=== PATIENT | female | born 1975 | race Caucasian/White ===

== ENCOUNTER 2018-02-16 16:45 | Emergency (ER) | payer BC, OTHER | END 2018-02-16 19:02 | disposition home or self-care (01) | LOC: ERS 16:45 | DX: S39.012A Strain of muscle, fascia and tendon of lower back, initial encounter (principal); E78.5 Hyperlipidemia, unspecified; F32.9 Major depressive disorder, single episode, unspecified; R73.03 Prediabetes; Z79.899 Other long term (current) drug therapy; Z79.84 Long term (current) use of oral hypoglycemic drugs; V43.52XA Car driver injured in collision with other type car in traffic accident, initial encounter | CPT/HCPCS: 99283 ==

== ENCOUNTER 2018-02-27 15:11 | Outpatient (CLI) | payer BC, OTHER | END 2018-02-27 15:12 | disposition home or self-care (01) | LOC: BICRAD 15:11 | PROVIDERS: ATTEND Chiropractor | DX: M54.12 Radiculopathy, cervical region (principal) | CPT/HCPCS: 72040 ==

== ENCOUNTER 2018-05-03 15:49 | Outpatient (CLI) | payer BC ==
--- NOTE | 2018-05-03 16:50 | MRI ---
MRI CERVICAL SPINE WITHOUT IV CONTRAST 05/03/18 HISTORY: Neck pain. Headaches after accident. COMPARISON: None available. FINDINGS: Limited visualized base of the brain and cervicomedullary junction demonstrate a normal MRI appearanc e. Normal signal intensity is demonstrated in the bone marrow. Cervical spinal cord is normal in sign al intensity and contour. C2-3 level: There is no disc bulge or disc herniation. The central spinal canal and neural foramina a re patent. C3-4 level: There is no disc bulge or disc herniation. The central spinal canal and neural foramina a re patent. C4-5 level: There is no disc bulge or disc herniation. Central spinal canal and neural foramina are p atent. C5-6 level: There is loss of intervertebral disc height. There is a disc osteophyte complex present w hich narrows the ventral subarachnoid space with minimal right sided neural foraminal narrowing. The left neural foramen is patent. C6-7 level: There is a broad based disc osteophyte complex which narrows the ventral subarachnoid spa ce, but the neural foramina are patent. C7-T1 level: There is minimal disc bulge, but the central spinal canal and neural foramina are patent . The prevertebral and paravertebral soft tissues demonstrate normal signal intensity. IMPRESSION: Mild degenerative changes in the cervical spine at the C5-6 and C6-7 levels. However, there is no sig nificant narrowing of the central spinal canal or neural foramina at any level. POS: [facility]
== END 2018-05-03 15:50 | disposition home or self-care (01) ==
LOC: MRI 15:49
PROVIDERS: ATTEND Chiropractor
DX: M54.2 Cervicalgia (principal); R51 Headache; M47.892 Other spondylosis, cervical region
CPT/HCPCS: 72141

== ENCOUNTER 2020-09-14 17:00 | Inpatient (IN) | payer BC ==
[2020-09-14 17:47] LABS: #Basophils 0.1 thou/uL (0.0-0.2); #Lymphocytes 0.5 thou/uL (1.20-3.40); #Monocytes 0.3 thou/uL (0.11-0.59); #Neutrophils 4.4 thou/uL (1.40-6.50); %Basophils 1.2 % (0.0-1.0); %Eosinophils 0.2 % (0.0-10.0); %Lymphocytes 10.1 % (21.0-51.0); %Neutrophils 82.5 % (42.0-75.0); Hemoglobin 13.5 g/dL (12.0-16.0); Mean Corpuscular HGB CONC 31.6 g/dL (32.0-36.0); Mean Corpuscular Hemoglobin 28.2 pg (27.0-31.0); Mean Corpuscular Volume 89.2 fL (78.0-98.0); Mean Platelet Volume 7.8 fL (7.4-10.4); Platelet Count 287 thou/uL (130-400); RBC Distribution Width 13.7 % (11.5-14.5); Red Blood Cell (RBC) Count 4.78 mill/uL (4.20-5.40); White Blood Cell (WBC) Count 5.3 thou/uL (4.8-10.8)
[2020-09-14] MEDS ORDERED: Dexamethasone 10 MG/ML VIAL ONE (17:51)
[2020-09-14 18:21] LABS: ALT (SGPT) 99 U/L (8-55); AST (SGOT) 126 U/L (5-34); Albumin 3.6 g/dL (3.5-5.0); Alkaline Phosphatase 120 U/L (40-110); Anion Gap 16 mmol/L (10-20); BUN (Urea Nitrogen) 15 mg/dL (7.0-18.7); Bilirubin, Total 0.2 mg/dL (0.2-1.2); CRP (Inflammatory) 19.88 mg/dL (= or < 0.5); Calc. Creatinine Clearance 0 mL/min (70-130); Calcium 8.4 mg/dL (7.8-10.44); Carbon Dioxide 24 mmol/L (22-29); Chloride 103 mmol/L (98-107); Globulin 3.3 g/dL (2.4-3.5); Glucose 140 mg/dL (70-105); Potassium 4.1 mmol/L (3.5-5.1); Protein, Total 6.9 g/dL (6.0-8.3); Sodium 139 mmol/L (136-145)
--- NOTE | 2020-09-14 18:22 | PDOC.FPRHP ---
- History of Present Illness Chief Complaint: hypoxia History of Present Illness: 45yo female PMH anxiety/depression, hyperlipidemia who presents for evaluation of hypoxia noted at PCP office, Dr. Galvan. Symptoms of N/V started on 09/10 with fever, COVID + on 09/11. Endorses cough, SOB, N/V, fever, myalgias, headache. Currently increased to 6L in ED. He had several episodes of vomiting today but now has an appetite and wants to eat. ED Course: decadron 10mg, 1L NS - Allergies/Adverse Reactions Allergies Allergy/AdvReac Type Severity Reaction Status Date / Time Penicillins Allergy Unknown Verified 09/14/20 23:04 - History PMHx: ovarian cyst, pre-diabetes, depression, anxiety, HLD degenerative disc di sease PSHx: cholecystectomy FHx: non-contributory Social: No tobacco, alcohol, drug use. Works in school cafeteria. Lives with . Has 2 adult children. - Review of Systems General: reports: fever/chills, weight/appetite/sleep changes Eyes: denies: eye pain, vision changes Respiratory: reports: cough, shortness of breath Cardiovascular: denies: chest pain, palpitation Gastrointestinal: reports: nausea, vomiting. denies: diarrhea, constipation, abdominal pain Genitourinary: denies: incontinence, dysuria Skin: denies: rashes, lesions Musculoskeletal: reports: pain. denies: arthritis/arthralgias Neurological: denies: numbness, syncope Psychological: reports: anxiety, depression - Vital signs BP: 140/73 HR: 109 RR: 26 Tmax: 100.6 Pox: 92% on 2L Wt: 127 kg - Physical Exam Constitutional: NAD, awake, alert and oriented, well developed (obese, appears comfortable) HEENT: normocephalic and atraumatic, EOMI, other (MM slightly dry) Heart: RRR, normal S1/S2 (exam limited), no edema Lungs: good air movement (normal effort but will desat to upper 80s with conversation or when coughing), no wheezing Abdomen: soft, non-tender Musculoskeletal: normal structure, normal tone Neurological: no focal deficit Skin: good turgor, capillary refill <2 seconds FMR H&P: Results - Labs Result Diagrams: 09/14/20 17:20 09/15/20 05:44 Lab results: WBC 5.3 thou/uL (4.8-10.8) 09/14/20 17:20 Hgb 13.5 g/dL (12.0-16.0) 09/14/20 17:20 Hct 42.6 % (36.0-47.0) 09/14/20 17:20 MCV 89.2 fL (78.0-98.0) 09/14/20 17:20 Plt Count 287 thou/uL (130-400) 09/14/20 17:20 Neutrophils % 82.5 % (42.0-75.0) H 09/14/20 17:20 ESR Westergren 42 mm/hr (Less than 20) H 09/14/20 17:20 Lactic Acid 1.2 mmol/L (0.5-2.2) 09/14/20 17:20 FMR H&P: A/P - Plan 45 yo female diagnosed with COVID on 09/11 presents from PCP's office with O2 sats 78% on RA #Acute hypoxic resp failure 2/2 COVID Pna, Dx on 09/11, sx on 09/10 -O2 sat 80% in ED, started on 4L and then increased to 6L with sats 92%, RR 34, HR 109 -CXR: b/l infiltrates consistent with COVID pna -CRP 19.88, AST/ALT 126/99, lactic acid 1.2 -s/p decadron 10mg in ED, will continue 6mg daily -will order convalescent plasma and remdesevir -on 4L NC, will wean as tolerated -pending ferritin, D dimer #Degenerative disc disease -continue home meds #Depression/anxiety -continue home meds #pre-diabetes -continue metformin #hyperlipidemia -continue home meds Code: Full PCP: [facility] IVF: SL DVT ppx: Lovenox Dispo: Admit to medical, will begin standard COVID treatments. FMR H&P: Upper Level - Plan Date/Time: 09/14/20 1820 Miracle John, have evaluated this patient and agree with findings/plan as outlined by web development intern resident. Pertinent changes/additions are listed here. Acute hypoxic respiratory failure 2/2 COVID PNA - Symptom onset 09/10, Test + 09/11 -Hypoxia to 80s in ED, started on 4L-> now satting 90% on 6L -CXR: bilateral opacities c/w Covid -CRP 19.88, AST/ALT 126/99, lactic acid 1.2 -s/p decadron 10mg in ED, will continue 6mg daily -ordered convalescent plasma and remdesevir -continue respiratory support with NC, may eventually require HFNC -pending ferritin, ddimer, procalcitonin Dispo: admit to medical floor, inpatient, expected LOS >48h Addendum - Attending - Attending Attestation Date/Time: 09/15/20 0704 I discussed the management with Dr. Diaz. I agree with the History, Examination, Assessment and Plan documented above with any addition or exceptions noted below.
[2020-09-14] MEDS ORDERED: Ondansetron ODT 4 MG TAB PO PRN (18:50)
[2020-09-14] MEDS ORDERED: Ondansetron PF 4 MG/2 ML Vial IVP PRN (18:50)
--- NOTE | 2020-09-14 18:52 | RAD ---
PORTABLE CHEST: Indications: Dyspnea, Covid positive. FINDINGS: No comparisons. There are patchy bilateral infiltrates seen in the periphery of both lungs, slightly more extensive i n the left lung. Findings are consistent with bilateral Covid pneumonia. IMPRESSION: Bilateral infiltrates as described. POS: [facility]
[2020-09-14] MEDS ORDERED: Pharmacy to Dose REMDESIVIR IVPB PRN (19:07)
[2020-09-14] MEDS: Acetaminophen 325 MG TAB PO PRN (21:00)
[2020-09-14] MEDS ORDERED: REMDESIVIR (EUA) 200 MG in Sodium Chloride 0.9% 250 ML 210 ML IV SCH (22:00)
[2020-09-15] MEDS ORDERED: traMADol HCl 50 MG TAB PO PRN (04:37)
[2020-09-15 06:42] LABS: ALT (SGPT) 85 U/L (8-55); AST (SGOT) 98 U/L (5-34); Albumin 3.1 g/dL (3.5-5.0); Alkaline Phosphatase 117 U/L (40-110); Anion Gap 14 mmol/L (10-20); BUN (Urea Nitrogen) 14 mg/dL (7.0-18.7); Bilirubin, Total 0.2 mg/dL (0.2-1.2); Calc. Creatinine Clearance 0 mL/min (70-130); Calcium 7.7 mg/dL (7.8-10.44); Carbon Dioxide 25 mmol/L (22-29); Chloride 105 mmol/L (98-107); Glucose 215 mg/dL (70-105); Potassium 4.4 mmol/L (3.5-5.1); Protein, Total 6.1 g/dL (6.0-8.3); Sodium 140 mmol/L (136-145)
[2020-09-15 07:08] LABS: SARS-CoV-2 PCR by NAA DETECTED (NotDetected)
--- NOTE | 2020-09-15 07:12 | PDOC.FM ---
- Subjective Subjective: Ms. Villalta reports she is more comfortable on oxygen this morning than she was on admission. She denies headache, chest pain, abdominal pain. - Objective Vital Signs & Weight: Vital Signs (12 hours) Temp Pulse Resp BP Pulse Ox 09/15/20 04:00 98.4 F 89 20 103/69 91 L 09/14/20 22:20 99.6 F 09/14/20 20:52 97.7 F 90 18 97/58 L 94 L 09/14/20 20:00 102.7 F H 106 H 22 H 138/74 93 L Result Diagrams: 09/14/20 17:20 09/15/20 05:44 Phys Exam - Physical Examination Constitutional: NAD HEENT: moist MMs, sclera anicteric Neck: full ROM Respiratory: no wheezing, no rales, no rhonchi, clear to auscultation bilateral Cardiovascular: RRR, no significant murmur Gastrointestinal: soft, non-tender Musculoskeletal: no edema, pulses present Neurological: non-focal, moves all 4 limbs Psychiatric: normal affect, A&O x 3 Skin: no rash Dx/Plan - Plan Plan: 45 yo female diagnosed with COVID on 09/11 presents from PCP's office with O2 sats 78% on RA Acute hypoxic resp failure 2/2 COVID Pna, Dx on 09/11, sx on 09/10 -O2 sat 80% in ED, started on 4L and then increased to 6L with sats 92%, RR 34, HR 109 -CXR: b/l infiltrates consistent with COVID pna -CRP 19.88, AST/ALT 126/99, lactic acid 1.2, ferritin 153.69, Ddimer 0.93 -s/p decadron 10mg in ED, will continue 6mg daily. Remdesevir (09/14), Convalescent plasma (09/15). -95% on 5L this am. Continue to monitor and wean and tolerated. Degenerative disc disease -continue home meds Depression/anxiety -continue home meds pre-diabetes -continue metformin -mild SSI hyperlipidemia -continue home meds Code: Full PCP: [facility] IVF: SL DVT ppx: Lovenox Dispo: Continue standard COVID management and supportive care. Continue to monitor respiratory status. Addendum - Attending - Attending Attestation Date/Time: 09/15/20 6528 I personally evaluated the patient and discussed the management with Dr. Lindsey. I agree with the History, Examination, Assessment and Plan documented above with any addition or exceptions noted below. Day 2 remdesivir. continue supplemental oxygen and steroids. Trend daily D- Dimer. She is day 5-6 of illness so she may decompensate in the next few days.
[2020-09-15] MEDS ORDERED: NORETHINDRONE ETHIN ESTRADIOL PO SCH ×2 (09:00)
[2020-09-15] MEDS ORDERED: HumaLOG 300 UNITS/3 ML VIAL SC PRN (09:20)
[2020-09-15] MEDS ORDERED: Dextrose 50% Abboject 50 ML SYRINGE SLOW IVP PRN (09:20)
[2020-09-15] MEDS ORDERED: Dextrose 5% in Water 1,000 ML IV PRN (09:20)
[2020-09-15] MEDS: CeleCOXIB 100 MG CAP PO SCH ×2 (10:06→21:13)
[2020-09-15] MEDS: Fenofibrate Nanocrystallized 145 MG TAB PO SCH (10:06)
[2020-09-15] MEDS: Baclofen 10 MG TAB PO SCH ×2 (10:06→21:13)
[2020-09-15] MEDS: Dexamethasone 4 MG TAB PO SCH (10:07)
[2020-09-15] MEDS: Enoxaparin Sodium 40 MG/0.4 ML SYRINGE SC SCH (10:08)
[2020-09-15] MEDS: busPIRone HCl 10 MG TAB PO PRN ×2 (17:16→23:05)
[2020-09-15] MEDS: metFORMIN XR 500 MG TAB PO SCH (21:12)
[2020-09-15] MEDS: Melatonin 3 MG TAB PO SCH (21:12)
[2020-09-15] MEDS: Gabapentin 300 MG CAP PO SCH (21:12)
[2020-09-15] MEDS: REMDESIVIR (EUA) 100 MG in Sodium Chloride 0.9% 250 ML 230 ML IV SCH (21:14)
[2020-09-15] MEDS: Acetaminophen 325 MG TAB PO PRN (22:35)
[2020-09-15] MEDS: Benzonatate 100 MG CAP PO PRN (23:58)
[2020-09-16] MEDS ORDERED: Zolpidem Tartrate 5 MG TAB PO SCH (03:15)
[2020-09-16 04:30] LABS: #Lymphocytes 0.9 thou/uL (1.20-3.40); #Monocytes 0.6 thou/uL (0.11-0.59); #Neutrophils 6.3 thou/uL (1.40-6.50); %Basophils 0.1 % (0.0-1.0); %Eosinophils 0.1 % (0.0-10.0); %Lymphocytes 11.7 % (21.0-51.0); %Monocytes 7.3 % (0.0-10.0); %Neutrophils 80.7 % (42.0-75.0); Hemoglobin 12.9 g/dL (12.0-16.0); Mean Corpuscular HGB CONC 32.3 g/dL (32.0-36.0); Mean Corpuscular Hemoglobin 28.4 pg (27.0-31.0); Mean Platelet Volume 7.8 fL (7.4-10.4); Platelet Count 318 thou/uL (130-400); RBC Distribution Width 13.7 % (11.5-14.5); Red Blood Cell (RBC) Count 4.53 mill/uL (4.20-5.40); White Blood Cell (WBC) Count 7.8 thou/uL (4.8-10.8)
--- NOTE | 2020-09-16 07:07 | PDOC.FM ---
- Subjective Subjective: Ms. Villalta was switched to HFNC last night. She reports she is extremely tired this morning but feels that she is breathing better than she was last night. - Objective Vital Signs & Weight: Vital Signs (12 hours) Temp Pulse Resp BP Pulse Ox 09/16/20 04:00 98.2 F 96 20 117/80 93 L 09/16/20 01:30 94 L 09/16/20 00:00 98.6 F 99 20 102/59 L 95 09/15/20 20:00 92 L Most Recent Monitor Data Heart Rate from ECG 90 NIBP 125/90 I&O: 09/15/20 09/16/20 09/17/20 06:59 06:59 06:59 Intake Total 1030 Balance 1030 Result Diagrams: 09/16/20 04:22 09/15/20 05:44 Phys Exam - Physical Examination Constitutional: NAD HEENT: moist MMs, sclera anicteric Neck: no nodes, no JVD, full ROM Respiratory: no wheezing, no rales, no rhonchi, clear to auscultation bilateral Cardiovascular: RRR, no significant murmur Gastrointestinal: soft, non-tender Musculoskeletal: no edema, pulses present Neurological: moves all 4 limbs Psychiatric: normal affect, A&O x 3 Skin: no rash Dx/Plan - Plan Plan: 45 yo female diagnosed with COVID on 09/11 presents from PCP's office with O2 sats 78% on RA Acute hypoxic resp failure 2/2 COVID Pna, Dx on 09/11, sx on 09/10 -O2 sat 80% in ED, started on 4L and then increased to 6L with sats 92%, RR 34, HR 109 -CXR: b/l infiltrates consistent with COVID pna -CRP 19.88, AST/ALT 126/99, lactic acid 1.2, ferritin 153.69, Ddimer 0.93 -s/p decadron 10mg in ED, Increase to 6mg BID dosing today. -Remdesevir (09/14), Convalescent plasma (09/15). -90% on HFNC 50/50 this AM. Degenerative disc disease -continue home meds Depression/anxiety -continue home meds pre-diabetes -continue metformin -mild SSI hyperlipidemia -continue home meds Code: Full PCP: [facility] IVF: SL DVT ppx: Lovenox Dispo: Continue standard COVID management and supportive care. Continue to monit or respiratory status. Increase steroid dosage to BID today. Addendum - Attending - Attending Attestation Date/Time: 09/16/20 1050 I personally evaluated the patient and discussed the management with Dr. Lindsey. I agree with the History, Examination, Assessment and Plan documented above with any addition or exceptions noted below. increased to HFNC overnight. continue steroids and remdesivir.
[2020-09-16] MEDS: Dexamethasone 4 MG TAB PO SCH ×2 (08:19→17:23)
[2020-09-16] MEDS: Baclofen 10 MG TAB PO SCH ×2 (08:19→20:15)
[2020-09-16] MEDS: CeleCOXIB 100 MG CAP PO SCH ×2 (08:20→20:12)
[2020-09-16] MEDS: Enoxaparin Sodium 40 MG/0.4 ML SYRINGE SC SCH (08:21)
[2020-09-16] MEDS: Fenofibrate Nanocrystallized 145 MG TAB PO SCH (08:21)
[2020-09-16] MEDS: Vortioxetine Hydrobromide [Trintellix] 20 MG Tablet PO SCH ×2 (19:07→20:12)
[2020-09-16] MEDS: Gabapentin 300 MG CAP PO SCH (20:13)
[2020-09-16] MEDS: Melatonin 3 MG TAB PO SCH (20:14)
[2020-09-16] MEDS: metFORMIN XR 500 MG TAB PO SCH (20:15)
[2020-09-16] MEDS: Zolpidem Tartrate 5 MG TAB PO SCH (20:15)
[2020-09-16] MEDS: busPIRone HCl 10 MG TAB PO PRN (20:19)
[2020-09-16] MEDS: Benzonatate 100 MG CAP PO PRN (20:19)
[2020-09-16] MEDS: REMDESIVIR (EUA) 100 MG in Sodium Chloride 0.9% 250 ML 230 ML IV SCH (21:19)
[2020-09-17] MEDS: busPIRone HCl 10 MG TAB PO PRN ×2 (05:49→20:31)
--- NOTE | 2020-09-17 07:30 | PDOC.FM ---
- Subjective Subjective: Ms. Villalta says though she is still tired she is feeling much better this morning. She denies headache, chest pain. - Objective Vital Signs & Weight: Vital Signs (12 hours) Temp Pulse Resp BP BP Pulse Ox 09/17/20 04:00 98.3 F 83 22 H 126/68 88 L 09/17/20 00:00 98.7 F 98 22 H 117/75 94 L 09/16/20 20:46 98.4 F 89 20 125/77 90 L 09/16/20 20:00 90 L Weight Weight 113.58 kg Most Recent Monitor Data Heart Rate from ECG 90 NIBP 125/90 I&O: 09/16/20 09/17/20 09/18/20 06:59 06:59 06:59 Intake Total 1030 800 Output Total 2000 Balance 1030 -1200 Result Diagrams: 09/16/20 04:22 09/15/20 05:44 Phys Exam - Physical Examination Constitutional: NAD HEENT: moist MMs, sclera anicteric Neck: full ROM Respiratory: no wheezing, no rales, no rhonchi, clear to auscultation bilateral Cardiovascular: RRR, no significant murmur Gastrointestinal: soft, non-tender Musculoskeletal: no edema, pulses present Neurological: non-focal Lymphatic: no nodes Psychiatric: normal affect, A&O x 3 Skin: no rash Dx/Plan - Plan Plan: 45 yo female diagnosed with COVID on 09/11 presents from PCP's office with O2 sats 78% on RA Acute hypoxic resp failure 2/2 COVID Pna, Dx on 09/11, sx on 09/10 -O2 sat 80% in ED, started on 4L and then increased to 6L with sats 92%, RR 34, HR 109 -CXR: b/l infiltrates consistent with COVID pna -AST/ALT 126/99, lactic acid 1.2, ferritin 153.69 -CRP 19.88, 9.25, 7.42. Ddimer 0.93, 0.52, 0.53 -s/p decadron 10mg in ED, Increased to 6mg BID dosing. -Remdesevir (09/14), Convalescent plasma (09/15). -88-92% on HFNC this AM. -Will place CM consult for home O2 Degenerative disc disease -continue home meds Depression/anxiety -continue home meds pre-diabetes -continue metformin -mild SSI hyperlipidemia -continue home meds Code: Full PCP: [facility] IVF: SL DVT ppx: Lovenox Dispo: Continue standard COVID management and supportive care. Continue to monitor respiratory status. Patient seems to be improving today. Will discharge pending ability to wean O2 requirement. Addendum - Attending - Attending Attestation Date/Time: 09/17/20 8437 I personally evaluated the patient and discussed the management with Dr. Lindsey. I agree with the History, Examination, Assessment and Plan documented above with any addition or exceptions noted below. increase in HFNC settings last night. patient looks clinically improved. continue supportive care.
[2020-09-17] MEDS: Fenofibrate Nanocrystallized 145 MG TAB PO SCH (08:36)
[2020-09-17] MEDS: Baclofen 10 MG TAB PO SCH ×2 (08:37→20:32)
[2020-09-17] MEDS: CeleCOXIB 100 MG CAP PO SCH ×2 (08:38→20:32)
[2020-09-17] MEDS: Enoxaparin Sodium 40 MG/0.4 ML SYRINGE SC SCH (08:40)
[2020-09-17] MEDS: Dexamethasone 4 MG TAB PO SCH ×2 (08:40→19:17)
[2020-09-17] MEDS ORDERED: Clopidogrel Bisulfate 75 MG TAB ONE (20:10)
[2020-09-17] MEDS: Benzonatate 100 MG CAP PO PRN (20:31)
[2020-09-17] MEDS: Gabapentin 300 MG CAP PO SCH (20:31)
[2020-09-17] MEDS: Zolpidem Tartrate 5 MG TAB PO SCH (20:32)
[2020-09-17] MEDS: Vortioxetine Hydrobromide [Trintellix] 20 MG Tablet PO SCH (20:33)
[2020-09-17] MEDS: Melatonin 3 MG TAB PO SCH (20:33)
[2020-09-17] MEDS: metFORMIN XR 500 MG TAB PO SCH (20:33)
[2020-09-17] MEDS: REMDESIVIR (EUA) 100 MG in Sodium Chloride 0.9% 250 ML 230 ML IV SCH (21:15)
[2020-09-18 06:32] LABS: Hemoglobin A1c 6.2 % (4.0-6.0)
--- NOTE | 2020-09-18 07:01 | PDOC.FM ---
- Subjective Subjective: Patient sitting on side of bed and conversing well this morning. She says she is eager to go home as the food here is terrible. She did sleep better last night. - Objective Vital Signs & Weight: Vital Signs (12 hours) Temp Pulse Resp BP BP Pulse Ox 09/18/20 06:14 88 L 09/18/20 04:00 98.5 F 90 22 H 121/75 85 L 09/18/20 00:00 98.5 F 100 22 H 132/82 89 L 09/17/20 20:00 97.8 F 90 22 H 132/88 89 L Weight Weight 113.58 kg Most Recent Monitor Data Heart Rate from ECG 90 NIBP 125/90 I&O: 09/17/20 09/18/20 09/19/20 06:59 06:59 06:59 Intake Total 800 1000 Output Total 2000 Balance -1200 1000 Result Diagrams: 09/16/20 04:22 09/15/20 05:44 Phys Exam - Physical Examination Constitutional: NAD HEENT: moist MMs, sclera anicteric Neck: full ROM Respiratory: no wheezing, no rales, no rhonchi, clear to auscultation bilateral Cardiovascular: RRR, no significant murmur Gastrointestinal: soft, non-tender Musculoskeletal: no edema, pulses present Neurological: non-focal Psychiatric: normal affect, A&O x 3 Skin: no rash Dx/Plan - Plan Plan: 45 yo female diagnosed with COVID on 09/11 presents from PCP's office with O2 sats 78% on RA Acute hypoxic resp failure 2/2 COVID Pna, Dx on 09/11, sx on 09/10 -O2 sat 80% in ED, started on 4L and then increased to 6L with sats 92%, RR 34, HR 109 -CXR: b/l infiltrates consistent with COVID pna -AST/ALT 126/99, lactic acid 1.2, ferritin 153.69 -CRP 7.42, 3.69. Ddimer 0.53, 0.69 -s/p decadron 10mg in ED, Continue 6mg BID dosing for 10 total days then taper off. -Remdesevir (09/14), Convalescent plasma (09/15). -O2 requirement: 91% on HFNC 55/46 this AM - consult for home O2 placed: paperwork prepared for provider to sign once patient is weaned to nasal cannula Degenerative disc disease -continue home meds Depression/anxiety -continue home meds Pre-diabetes -A1c 6.2 -continue metformin -mild SSI Hyperlipidemia -continue home meds Code: Full PCP: [facility] IVF: SL DVT ppx: Lovenox Dispo: Discharge pending ability to wean O2 requirement to nasal cannula. Addendum - Attending - Attending Attestation Date/Time: 09/18/20 9403 I personally evaluated the patient and discussed the management with Dr. Lindsey,. I agree with the History, Examination, Assessment and Plan documented above with any addition or exceptions noted below. Need slight increase in HFNC requirement overnight. continue supportive care.
[2020-09-18] MEDS: CeleCOXIB 100 MG CAP PO SCH ×2 (08:17→20:03)
[2020-09-18] MEDS: busPIRone HCl 10 MG TAB PO PRN ×3 (08:17→20:04)
[2020-09-18] MEDS: Fenofibrate Nanocrystallized 145 MG TAB PO SCH (08:17)
[2020-09-18] MEDS: Enoxaparin Sodium 40 MG/0.4 ML SYRINGE SC SCH (08:17)
[2020-09-18] MEDS: Baclofen 10 MG TAB PO SCH ×2 (08:18→20:06)
[2020-09-18] MEDS: Dexamethasone 4 MG TAB PO SCH ×2 (08:19→16:29)
[2020-09-18] MEDS: metFORMIN XR 500 MG TAB PO SCH (20:02)
[2020-09-18] MEDS: Gabapentin 300 MG CAP PO SCH (20:03)
[2020-09-18] MEDS: Melatonin 3 MG TAB PO SCH (20:03)
[2020-09-18] MEDS: Zolpidem Tartrate 5 MG TAB PO SCH (20:04)
[2020-09-18] MEDS: Vortioxetine Hydrobromide [Trintellix] 20 MG Tablet PO SCH (20:06)
[2020-09-18] MEDS: REMDESIVIR (EUA) 100 MG in Sodium Chloride 0.9% 250 ML 230 ML IV SCH (21:11)
--- NOTE | 2020-09-19 06:18 | PDOC.FM ---
- Subjective Subjective: Ms. Villalta is still on high flow this morning. She is eating well but says she has not been sleeping well because her sleeping medicines aren't given to her until 9:30pm and don't kick in for 2-3 more hours. - Objective Vital Signs & Weight: Vital Signs (12 hours) Temp Pulse Resp BP Pulse Ox 09/19/20 04:00 98.9 F 85 22 H 133/84 89 L 09/19/20 02:44 92 L 09/19/20 00:00 98.6 F 90 22 H 145/84 H 90 L 09/18/20 20:00 98.3 F 85 20 138/97 H 91 L Weight Weight 113.58 kg Most Recent Monitor Data Heart Rate from ECG 90 NIBP 125/90 I&O: 09/17/20 09/18/20 09/19/20 06:59 06:59 06:59 Intake Total 800 1000 Output Total 2000 Balance -1200 1000 Result Diagrams: 09/16/20 04:22 09/15/20 05:44 Phys Exam - Physical Examination Constitutional: NAD HEENT: moist MMs, sclera anicteric Neck: no nodes, full ROM Respiratory: no wheezing, no rales, no rhonchi, clear to auscultation bilateral Cardiovascular: RRR, no significant murmur Gastrointestinal: soft, non-tender Musculoskeletal: no edema, pulses present Neurological: non-focal, moves all 4 limbs Psychiatric: normal affect, A&O x 3 Skin: no rash Dx/Plan - Plan Plan: 45 yo female diagnosed with COVID on 09/11 presents from PCP's office with O2 sats 78% on RA Acute hypoxic resp failure 2/2 COVID Pna, Dx on 09/11, sx on 09/10 -O2 sat 80% in ED, started on 4L and then increased to 6L with sats 92%, RR 34, HR 109 -CXR: b/l infiltrates consistent with COVID pna -AST/ALT 126/99, lactic acid 1.2, ferritin 153.69 -CRP 7.42, 3.69. Ddimer 0.53, 0.69 -s/p decadron 10mg in ED, Continue 6mg BID dosing for 10 total days then taper off. -Remdesevir (09/14), Convalescent plasma (1/26). -O2 requirement: 92% on HFNC 50/55 this AM - consult for home O2 placed: paperwork prepared for provider to sign once patient is weaned to nasal cannula Degenerative disc disease -continue home meds Depression/anxiety -continue home meds -Schedule for evening meds to be at 6pm Pre-diabetes -A1c 6.2 -continue metformin -mild SSI Hyperlipidemia -continue home meds Code: Full PCP: [facility] IVF: SL DVT ppx: Lovenox Dispo: Discharge pending ability to wean O2 requirement to nasal cannula. Addendum - Attending - Attending Attestation Date/Time: 09/19/20 3647 I personally evaluated the patient and discussed the management with Dr. Lindsey. I agree with the History, Examination, Assessment and Plan documented above with any addition or exceptions noted below. Patient stable. Here for acute hypoxic resp failure 2/2 COVID complicated by obesity. Continue usual therapies, she has completed Remdesevir. Wean HFNC as tolerated.
[2020-09-19] MEDS: Dexamethasone 4 MG TAB PO SCH ×2 (08:47→16:36)
[2020-09-19] MEDS: CeleCOXIB 100 MG CAP PO SCH ×2 (08:47→20:17)
[2020-09-19] MEDS: Fenofibrate Nanocrystallized 145 MG TAB PO SCH (08:48)
[2020-09-19] MEDS: Baclofen 10 MG TAB PO SCH ×2 (08:48→20:18)
[2020-09-19] MEDS: Enoxaparin Sodium 40 MG/0.4 ML SYRINGE SC SCH (08:49)
[2020-09-19] MEDS: busPIRone HCl 10 MG TAB PO PRN ×3 (08:51→22:24)
[2020-09-19] MEDS: metFORMIN XR 500 MG TAB PO SCH (20:16)
[2020-09-19] MEDS: Gabapentin 300 MG CAP PO SCH (20:17)
[2020-09-19] MEDS: Vortioxetine Hydrobromide [Trintellix] 20 MG Tablet PO SCH (20:18)
[2020-09-19] MEDS ORDERED: Zolpidem Tartrate 5 MG TAB PO SCH (21:00)
[2020-09-19] MEDS ORDERED: Melatonin 3 MG TAB PO SCH (21:00)
--- NOTE | 2020-09-20 06:21 | PDOC.FM ---
- Subjective Subjective: Stable of HFNC. Reports she is tired of being in the hospital and becoming irritable. - Objective Vital Signs & Weight: Vital Signs (12 hours) Temp Pulse Resp BP Pulse Ox 09/20/20 04:00 98.1 F 91 20 105/70 92 L 09/20/20 02:00 91 L 09/20/20 00:32 93 L 09/20/20 00:00 98.6 F 82 18 126/84 09/19/20 23:34 90 L 09/19/20 23:05 32 H 86 L 09/19/20 22:40 32 H 83 L 09/19/20 20:00 98.0 F 90 18 139/90 92 L Weight Weight 113.58 kg Most Recent Monitor Data Heart Rate from ECG 90 NIBP 125/90 I&O: 09/18/20 09/19/20 09/20/20 06:59 06:59 06:59 Intake Total 1000 400 Balance 1000 400 Result Diagrams: 09/16/20 04:22 09/15/20 05:44 Phys Exam - Physical Examination Constitutional: NAD HEENT: moist MMs, sclera anicteric Neck: full ROM Respiratory: no wheezing, no rales, no rhonchi, clear to auscultation bilateral Cardiovascular: RRR, no significant murmur Gastrointestinal: soft, non-tender Musculoskeletal: no edema, pulses present Neurological: moves all 4 limbs Lymphatic: no nodes Psychiatric: normal affect, A&O x 3 Skin: no rash Dx/Plan - Plan Plan: 45 yo female diagnosed with COVID on 09/11 presents from PCP's office with O2 sats 78% on RA Acute hypoxic resp failure 2/2 COVID Pna, Dx on 09/11, sx on 09/10 -O2 sat 80% in ED, started on 4L and then increased to 6L with sats 92%, RR 34, HR 109 -CXR: b/l infiltrates consistent with COVID pna -AST/ALT 126/99, lactic acid 1.2, ferritin 153.69 -CRP 7.42, 3.69. Ddimer 0.53, 0.69 -s/p decadron 10mg in ED, Continue 6mg BID dosing for 10 total days then taper off. -Remdesevir (09/14), Convalescent plasma (09/15). -O2 requirement: 92% on HFNC 50/65 this AM - consult for home O2 placed: paperwork prepared for provider to sign once patient is weaned to nasal cannula Degenerative disc disease -continue home meds Depression/anxiety -continue home meds -May need to adjust medication during patient's hospital stay as she reports increased irritability. Pre-diabetes -A1c 6.2 -continue metformin -mild SSI Hyperlipidemia -continue home meds Code: Full PCP: [facility] IVF: SL DVT ppx: Lovenox Dispo: Discharge pending ability to wean O2 requirement to nasal cannula. Addendum - Attending - Attending Attestation Date/Time: 09/20/20 4670 I personally evaluated the patient and discussed the management with Dr. Lindsey. I agree with the History, Examination, Assessment and Plan documented above with any addition or exceptions noted below. Patient stable. Continue HFNC, wean as tolerated. Increase and encourage ambulation and getting to the chair. Need to keep close eye on her mood disturbance as she indicates she feels it is getting worse given her current health status. She has completed Remdesevir and is on steroids for COVID.
[2020-09-20] MEDS: CeleCOXIB 100 MG CAP PO SCH ×2 (07:58→21:08)
[2020-09-20] MEDS: Baclofen 10 MG TAB PO SCH ×2 (07:58→21:10)
[2020-09-20] MEDS: Dexamethasone 4 MG TAB PO SCH ×2 (07:58→17:19)
[2020-09-20] MEDS: Enoxaparin Sodium 40 MG/0.4 ML SYRINGE SC SCH (07:59)
[2020-09-20] MEDS: Fenofibrate Nanocrystallized 145 MG TAB PO SCH (07:59)
[2020-09-20] MEDS: busPIRone HCl 10 MG TAB PO PRN ×2 (08:09→16:00)
[2020-09-20] MEDS: Gabapentin 300 MG CAP PO SCH (18:44)
[2020-09-20] MEDS: Melatonin 3 MG TAB PO SCH (18:44)
[2020-09-20] MEDS: Zolpidem Tartrate 5 MG TAB PO SCH (18:44)
[2020-09-20] MEDS ORDERED: Gabapentin 300 MG CAP PO SCH (21:00)
[2020-09-20] MEDS: metFORMIN XR 500 MG TAB PO SCH (21:08)
[2020-09-20] MEDS: Vortioxetine Hydrobromide [Trintellix] 20 MG Tablet PO SCH (21:10)
[2020-09-21 07:41] LABS: #Basophils 0.1 thou/uL (0.0-0.2); #Eosinphils 0.2 thou/uL (0.0-0.7); #Lymphocytes 1.3 thou/uL (1.20-3.40); #Monocytes 1.1 thou/uL (0.11-0.59); #Neutrophils 13.2 thou/uL (1.40-6.50); %Basophils 0.4 % (0.0-1.0); %Eosinophils 1.1 % (0.0-10.0); %Lymphocytes 8.4 % (21.0-51.0); %Monocytes 6.9 % (0.0-10.0); %Neutrophils 83.2 % (42.0-75.0); Hemoglobin 14.3 g/dL (12.0-16.0); Mean Corpuscular HGB CONC 31.8 g/dL (32.0-36.0); Mean Corpuscular Hemoglobin 27.6 pg (27.0-31.0); Mean Corpuscular Volume 86.7 fL (78.0-98.0); Mean Platelet Volume 7.4 fL (7.4-10.4); Platelet Count 441 thou/uL (130-400); RBC Distribution Width 13.8 % (11.5-14.5); White Blood Cell (WBC) Count 15.8 thou/uL (4.8-10.8)
[2020-09-21] MEDS: Baclofen 10 MG TAB PO SCH ×2 (07:56→21:21)
[2020-09-21] MEDS: Dexamethasone 4 MG TAB PO SCH ×2 (07:56→17:26)
[2020-09-21] MEDS: CeleCOXIB 100 MG CAP PO SCH ×2 (07:56→21:23)
[2020-09-21] MEDS: Fenofibrate Nanocrystallized 145 MG TAB PO SCH (07:57)
[2020-09-21] MEDS: Enoxaparin Sodium 40 MG/0.4 ML SYRINGE SC SCH (07:57)
[2020-09-21] MEDS: busPIRone HCl 10 MG TAB PO PRN ×2 (07:58→14:43)
[2020-09-21 08:04] LABS: ALT (SGPT) 43 U/L (8-55); AST (SGOT) 31 U/L (5-34); Albumin 3.4 g/dL (3.5-5.0); Alkaline Phosphatase 108 U/L (40-110); Anion Gap 13 mmol/L (10-20); BUN (Urea Nitrogen) 18 mg/dL (7.0-18.7); Bilirubin, Total 0.4 mg/dL (0.2-1.2); Calc. Creatinine Clearance 195 mL/min (70-130); Calcium 8.7 mg/dL (7.8-10.44); Carbon Dioxide 26 mmol/L (22-29); Chloride 105 mmol/L (98-107); Globulin 3.6 g/dL (2.4-3.5); Glucose 85 mg/dL (70-105); Potassium 4.3 mmol/L (3.5-5.1); Sodium 140 mmol/L (136-145)
--- NOTE | 2020-09-21 09:20 | PDOC.FM ---
- Objective Vital Signs & Weight: Vital Signs (12 hours) Temp Pulse Resp BP Pulse Ox 09/21/20 08:20 91 L 09/21/20 07:55 98.2 F 106 H 20 113/76 90 L 09/21/20 00:00 98.5 F 95 20 111/75 90 L Weight Weight 114.305 kg Most Recent Monitor Data Heart Rate from ECG 90 NIBP 125/90 I&O: 09/20/20 09/21/20 09/22/20 06:59 06:59 06:59 Intake Total 400 880 Balance 400 880 Result Diagrams: 09/21/20 07:23 09/21/20 07:23 Dx/Plan - Plan Plan: 45 yo female diagnosed with COVID on 09/11 presents from PCP's office with O2 sats 78% on RA Acute hypoxic resp failure 2/2 COVID Pna, Dx on 09/11, sx on 09/10 -O2 sat 80% in ED, started on 4L and then increased to 6L with sats 92%, RR 34, HR 109 -CXR: b/l infiltrates consistent with COVID pna -AST/ALT 126/99, lactic acid 1.2, ferritin 153.69 -CRP 7.42, 3.69. Ddimer 0.53, 0.69 -Remdesevir (09/14), Convalescent plasma (09/15) -s/p decadron 10mg in ED, Continue 6mg BID dosing. Will switch to once a day tomorrow. -O2 requirement: 94% on HFNC 50/60 this AM -CM consult for home O2 placed: paperwork prepared for provider to sign once mary duckworth is weaned to nasal cannula -Repeat CXR to assess for any changes. Degenerative disc disease -continue home meds Depression/anxiety -continue home meds -May need to adjust medication during patient's hospital stay as she reports increased irritability. Pre-diabetes -A1c 6.2 -continue metformin -mild SSI Hyperlipidemia -continue home meds Code: Full PCP: [facility] IVF: SL DVT ppx: Lovenox Dispo: Discharge pending ability to wean O2 requirement to nasal cannula.
--- NOTE | 2020-09-21 10:29 | RAD ---
CHEST 1 VIEW: HISTORY: Shortness of breath, increased white blood cell count, requiring HFNC: COMPARISON: 09/14/2020. FINDINGS: Decreased inspiration. Normal-size heart. Patchy bilateral interstitial, alveolar, and ground-glass opacity changes, particularly in the mid lung zones, possibly slightly more diffuse than on the prio r study. No significant new process. IMPRESSION: Evidence for persistent, possibly slightly more diffuse parenchymal changes commonly seen with COVID- 19 pneumonia. POS: [facility]
[2020-09-21] MEDS: Zolpidem Tartrate 5 MG TAB PO SCH (18:25)
[2020-09-21] MEDS: Gabapentin 300 MG CAP PO SCH (18:25)
[2020-09-21] MEDS: Melatonin 3 MG TAB PO SCH (18:25)
[2020-09-21] MEDS: Acetaminophen 325 MG TAB PO PRN (18:35)
[2020-09-21] MEDS: metFORMIN XR 500 MG TAB PO SCH (21:21)
[2020-09-21] MEDS: Vortioxetine Hydrobromide [Trintellix] 20 MG Tablet PO SCH (21:23)
[2020-09-22] MEDS: Acetaminophen 325 MG TAB PO PRN ×2 (05:37→18:31)
[2020-09-22 05:48] VITALS: BMI 43.5
--- NOTE | 2020-09-22 07:16 | PDOC.FM ---
- Subjective Subjective: Per nursing, patient desatted to 70s last night. Respiratory Therapy was called and patient was back at 88% when they arrived. They advised as long as she is sating above 85% she can remain on high flow. Patient says she feels as if she is getting better. - Objective Vital Signs & Weight: Vital Signs (12 hours) Temp Pulse Resp BP Pulse Ox 09/22/20 04:00 98.6 F 100 22 H 109/75 84 L 09/22/20 01:51 89 L 09/22/20 00:38 87 L 09/22/20 00:00 98.3 F 108 H 22 H 102/68 85 L 09/21/20 20:00 97.7 F 111 H 22 H 99/67 87 L 09/21/20 19:24 90 L Weight Weight 122.425 kg Most Recent Monitor Data Heart Rate from ECG 90 NIBP 125/90 I&O: 09/21/20 09/22/20 09/23/20 06:59 06:59 06:59 Intake Total 880 1520 Balance 880 1520 Result Diagrams: 09/22/20 08:29 09/21/20 07:23 Phys Exam - Physical Examination Constitutional: NAD HEENT: moist MMs, sclera anicteric Neck: no nodes, full ROM Respiratory: no wheezing, no rales, no rhonchi, clear to auscultation bilateral Cardiovascular: RRR, no significant murmur Gastrointestinal: soft, non-tender Musculoskeletal: no edema, pulses present Neurological: moves all 4 limbs Psychiatric: normal affect, A&O x 3 Dx/Plan - Plan Plan: 45 yo female diagnosed with COVID on 09/11 presents from PCP's office with O2 sats 78% on RA Acute hypoxic resp failure 2/2 COVID Pna, Dx on 09/11, sx on 09/10 -O2 sat 80% in ED, started on 4L and then increased to 6L with sats 92%, RR 34, HR 109 -CXR: b/l infiltrates consistent with COVID pna. Repeat 09/21 showed worsening covid pneumonia -AST/ALT 126/99, lactic acid 1.2, ferritin 153.69 -CRP 7.42, 3.69. Ddimer 0.53, 0.69 -Remdesevir (09/14), Convalescent plasma (09/15) -s/p decadron 10mg in ED, Continue 6mg BID dosing. -2/: WBC 20, Procal 0.06. Low suspicion for superimposed bacterial infection. -O2 requirement: 89% on HFNC this AM - consult for home O2 placed: paperwork prepared for provider to sign once patient is weaned to nasal cannula Degenerative disc disease -continue home meds Depression/anxiety -continue home meds -May need to adjust medication during patient's hospital stay as she reports increased irritability. -Patient's previous therapist was Kerry Ibanez. Will check and see if she is still practicing and if patient may benefit from meeting with her on the phone while hospitalized. Pre-diabetes -A1c 6.2 -continue metformin -mild SSI Hyperlipidemia -continue home meds Code: Full PCP: Cole IVF: SL DVT ppx: Lovenox Dispo: Continue supportive COVID management
[2020-09-22] MEDS: Baclofen 10 MG TAB PO SCH ×2 (07:54→21:34)
[2020-09-22] MEDS: Fenofibrate Nanocrystallized 145 MG TAB PO SCH (07:54)
[2020-09-22] MEDS: CeleCOXIB 100 MG CAP PO SCH ×2 (07:54→21:34)
[2020-09-22] MEDS: Enoxaparin Sodium 40 MG/0.4 ML SYRINGE SC SCH (07:55)
[2020-09-22] MEDS: busPIRone HCl 10 MG TAB PO PRN (07:55)
[2020-09-22] MEDS ORDERED: Dexamethasone 4 MG TAB PO SCH ×2 (08:00→17:00)
[2020-09-22 08:40] LABS: Hemoglobin 14.3 g/dL (12.0-16.0); Mean Corpuscular HGB CONC 32.2 g/dL (32.0-36.0); Mean Corpuscular Hemoglobin 28.2 pg (27.0-31.0); Mean Corpuscular Volume 87.5 fL (78.0-98.0); Mean Platelet Volume 7.5 fL (7.4-10.4); Platelet Count 396 thou/uL (130-400); RBC Distribution Width 13.7 % (11.5-14.5); Red Blood Cell (RBC) Count 5.08 mill/uL (4.20-5.40)
[2020-09-22 10:04] LABS: Band 3 % (5-11); Lymphocytes 4 % (21-51); MDiff Complete? YES; Metamyelocyte 1 % (0-0); Monocytes 5 % (0-10); Neutrophil 84 % (42-75); Platelet Morphology Comment Appears Adequate; Polychromasia SLIGHT = 2-3 cells (100X) (0-2/hpf); Reactive Lymphocytes 3 % (0-10); Vacuoles SLIGHT
[2020-09-22] MEDS: Gabapentin 300 MG CAP PO SCH (18:30)
[2020-09-22] MEDS: Zolpidem Tartrate 5 MG TAB PO SCH (18:31)
[2020-09-22] MEDS: Melatonin 3 MG TAB PO SCH (18:31)
[2020-09-22] MEDS: Vortioxetine Hydrobromide [Trintellix] 20 MG Tablet PO SCH (19:07)
[2020-09-22 21:26] VITALS: TEMP 98.3
[2020-09-22] MEDS: metFORMIN XR 500 MG TAB PO SCH (21:34)
[2020-09-22 21:43] LABS: Actual Bicarbonate (HCO3a) 23.4 mEq/L (22-28); Base Excess (BEa) -1.3 mEq/L (-2.0 to +3.0); CO2 Tension 39.6 mmHg (35.0-45.0); Calcium, Ionized (arterial) 1.15 mmol/L (1.12-1.30); Carboxyhemoglobin (COHb) 0.6 gm% (0.0-3.0); Hemoglobin (Hb) 13.4 g/dL (12.0-16.0); Potassium - ABG Lab 4.22 mmol/L (3.70-5.30); pH, Arterial 7.39 (7.35-7.45)
[2020-09-22 21:44] LABS: O2 Tension (PaO2), arterial 43.2 mmHg (80.0-100.0); Puncture Site RRA
--- NOTE | 2020-09-22 22:29 | RAD ---
EXAM: CHEST ONE VIEW HISTORY: Respiratory distress. Covid positive. COMPARISON: 09/21/2020 FINDINGS: Cardiac silhouette is magnified by projection. Diffuse increased alveolar and groundglass opacities a re seen throughout the lungs bilaterally which have increased especially at each lung base. No other interval change. IMPRESSION: Worsening Covid pneumonia.
--- NOTE | 2020-09-22 22:54 | PDOC.BPN ---
<Spring Branham - Last Filed: 09/23/20 00:17> - Brief Progress Note Encounter Date: 09/22/20 Encounter Time: 22:51 Got paged that patient was started on bipap due to being maxed out on HF with sats in high 70s with increasingly SOB. Pt seen in room on bipap currently. No current acute distress. Currently saturating at 95%. Understanding of plan to move to the unit. ABG was obtained while on HFNC which showed pO2 @ 43, pCO2 39, pH 7.39. CXR was obtained which showed worsening COVID PNA. Will repeat ABG shortly and will reassess patient's status at that time too once in unit. <Kerry Andres - Last Filed: 09/24/20 18:35> - Brief Progress Note Patient not doing well. Severe ARDS. Will likely require intubation. Patient aware and ok with plan when time comes. Bailey
[2020-09-23 00:53] VITALS: BP 117/76
[2020-09-23 00:55] LABS: Base Excess (BEa) 2.7 mEq/L (-2.0 to +3.0); CO2 Tension 51.6 mmHg (35.0-45.0); Calcium, Ionized (arterial) 1.17 mmol/L (1.12-1.30); Carboxyhemoglobin (COHb) 0.6 gm% (0.0-3.0); Hemoglobin (Hb) 13.7 g/dL (12.0-16.0); Potassium - ABG Lab 4.62 mmol/L (3.70-5.30); pH, Arterial 7.37 (7.35-7.45)
[2020-09-23 00:57] LABS: O2 Tension (PaO2), arterial 53.6 mmHg (80.0-100.0); Puncture Site LRA
[2020-09-23] MEDS ORDERED: Propofol 1,000 MG/100 ML VIAL IV ONE (03:23)
[2020-09-23] MEDS ORDERED: Albuterol Sulfate 1.25 MG/3 ML NEB ONE (03:55)
[2020-09-23] MEDS ORDERED: Atropine Sulfate 1 mg/10 ml Syringe ONE (04:00)
[2020-09-23] MEDS ORDERED: Sodium Bicarb 50 MEQ/50 ML Abboject 8.4% SYRINGE ONE (04:00)
[2020-09-23] MEDS ORDERED: EPINEPHrine 1 MG/10 ML Abboject SYRINGE ONE (04:00)
[2020-09-23] MEDS ORDERED: Norepinephrine 8 MG/0.9% NS 250 ML ONE (04:11)
[2020-09-23] MEDS ORDERED: hydrOXYzine 25 MG TAB PO PRN (07:36)
--- NOTE | 2020-09-23 09:26 | DIS ---
DATE OF ADMISSION: 09/14/2020 DATE OF DISCHARGE: 09/23/2020 ATTENDING: Kerry Andres MD RESIDENT: Bill Sheldon MD DATE OF : 09/23/2020. TIME OF : 4:50 a.m. in the morning. CAUSE OF : Hypoxic respiratory failure secondary to COVID-19 pneumonia. SECONDARY DIAGNOSES: 1. Anxiety. 2. Depression. 3. Hyperlipidemia. 4. Obesity. 5. Prediabetes. 6. Degenerative disk disease. HISTORY OF PRESENT ILLNESS/HOSPITAL COURSE: This was a 45-year-old female who presented to the hospital and was admitted for hypoxic respiratory failure secondary to COVID-19 pneumonia. She was treated with standard treatments including dexamethasone twice a day, remdesivir, and convalescent plasma. For the majority of her hospital stay, she went back and forth on high-flow nasal cannula to BiPAP. On the last day of hospitalization, she was transitioned to BiPAP secondary to hypoxia, but despite transition had continued hypoxia and tachypnea at this point with resting O2 rates in the 80s with respiratory rate in the 40s to 50s. Decision was made for intubation. The patient consented to this and this was discussed with both the patient and her . After successful intubation, the patient had persistent oxygen saturations in the 40s and heart rate eventually went into ventricular tachycardia with a pulse. Blood pressures were initially stable and preparations were made for dose of adenosine to be given. However, blood pressures tanked and the patient had a synchronized cardioversion. After this, heart rate was in sinus tachycardia that initially had a pulse but eventually the patient lost pulse and chest compressions were started. 3 to 4 rounds of CPR were given and multiple medications including epinephrine, atropine, and bicarb were given. The patient was switching between pulseless electronic activity to ventricular tachycardia without a pulse and ventricular tachycardia with a pulse. Eventually, ROSC was achieved and the patient was in persistent sinus tachycardia. However, her blood pressures decreased from systolic in the 130s to systolic in the 70s. At this point, the patient had fluids and Levophed ordered. At this point on exam, the patient had no corneal reflex despite titrating up Levophed to 30, blood pressure continued to decline and her was called to discuss goals of care, and on her behalf, he decided that she would not want to be resuscitated again should she go into cardiac arrest. Over the next 30 to 40 minutes, the patient's heart rate declined at cardiac arrest. At this point, a physical exam was done in which the patient had no corneal reflex, no pupillary reflex, no pain withdrawal and asystole on auscultation and time of was called at 4:50 a.m. in the morning, on September 23, 2020, with cause of as listed above. Job ID: [id number]
--- NOTE | 2020-09-23 11:40 | RAD ---
PORTABLE CHEST; Date: 09/23/2020 COMPARISON: Prior day's study. HISTORY: Intubation. FINDINGS: Parenchymal lung changes are stable. Endotracheal tube has been placed. Tip of the tube is approximat yoni 15.0 mm above the level of the sarah. IMPRESSION: Placement of endotracheal tube. Otherwise stable exam. POS: CYNTHIA
--- NOTE | 2020-09-26 16:42 | EKG ---
Test Reason : Blood Pressure : / mmHG Vent. Rate : 101 BPM Atrial Rate : 101 BPM P-R Int : 138 ms QRS Dur : 076 ms QT Int : 328 ms P-R-T Axes : -23 -19 -12 degrees QTc Int : 425 ms Sinus tachycardia Low voltage QRS Nonspecific T wave abnormality Abnormal ECG Confirmed by ROBSON MARTINEZ, JOSH Chawla ([id number]), editor city JUAN CARLOS OCHOA ([id number]) on 09/26/2020 4:42:09 PM Referred By: Confirmed By:JOSH CHANCE MD
== END 2020-09-23 04:50 | disposition expired | DRG 177 ==
LOC: ERS 17:00 → T4-B 18:28 → CCU 09-22 23:59
PROVIDERS: ADMIT Family Medicine; ATTEND Family Medicine
PROC: XW033E5 Introduction of Remdesivir Anti-infective into Peripheral Vein, Percutaneous Approach, New Technology Group 5 (ICD-10-PCS; 2020-09-14)
PROC: 8E0ZXY6 Isolation (ICD-10-PCS; 2020-09-14)
PROC: XW13325 Transfusion of Convalescent Plasma (Nonautologous) into Peripheral Vein, Percutaneous Approach, New Technology Group 5 (ICD-10-PCS; principal; 2020-09-15)
PROC: 5A12012 Performance of Cardiac Output, Single, Manual (ICD-10-PCS; 2020-09-23)
PROC: 5A09357 Assistance with Respiratory Ventilation, Less than 24 Consecutive Hours, Continuous Positive Airway Pressure (ICD-10-PCS; 2020-09-23)
PROC: 5A2204Z Restoration of Cardiac Rhythm, Single (ICD-10-PCS; 2020-09-23)
DX: U07.1 COVID-19 (principal); J12.82 Pneumonia due to coronavirus disease 2019; J96.01 Acute respiratory failure with hypoxia; Z68.41 Body mass index [BMI] 40.0-44.9, adult; I47.2 Ventricular tachycardia; F41.9 Anxiety disorder, unspecified; F32.9 Major depressive disorder, single episode, unspecified; R73.03 Prediabetes; M51.36 Other intervertebral disc degeneration, lumbar region; E66.9 Obesity, unspecified; E78.5 Hyperlipidemia, unspecified; I46.9 Cardiac arrest, cause unspecified; Z90.49 Acquired absence of other specified parts of digestive tract
CPT/HCPCS: 36415; 36416; 36430; 36600; 71045; 80053; 82728; 82805; 83036; 83605; 83880; 84145; 84484; 85025; 85379; 85652; 86140; 86850; 86900; 86901; 87040; 87635; 93005; 94660; 94760; 96374; J0171; J0461; J1100; J1650; J7050; J8540; P9017; Q0162; U0003; U0005